=== PATIENT | female | born 1970 | race Caucasian/White ===

== ENCOUNTER 2018-10-27 10:23 | Emergency (ER) | payer OTHER ==
[~2018-10-27] VITALS: Ht 162.6 cm; Wt 54.4 kg
[2018-10-27] MEDS ORDERED: METOPROLOL TART25 MG PO (10:41)
== END 2018-10-27 13:25 | disposition home or self-care (01) ==
LOC: ED 10:23
DX: F10.129 Alcohol abuse with intoxication, unspecified (principal); Y90.8 Blood alcohol level of 240 mg/100 ml or more; G93.40 Encephalopathy, unspecified; I10 Essential (primary) hypertension; Z79.899 Other long term (current) drug therapy
CPT/HCPCS: 71046; 80053; 81001; 83735; 84703; 85025; 85610; 85730; 96365; 96366; 96375; 99285-25; G0480; J2405; J3411; J7030